=== PATIENT | female | born 1940 | race Caucasian/White ===

== ENCOUNTER → 2016-04-03 | Outpatient (CLI) | payer OTHER, BC ==
[~2016-04-03] MED LIST: AMLO-114 PO; ATEN50TA8 PO; CALC500C70 PO; LEVO25TA5 PO
[2016-04-03 13:28] LABS: BASO % 0.5 %; BASO ABS # 0.04 K/uL (0-0.2); COMPLETE YES; EOS % 3.3 %; HEMATOCRIT 42.4 % (37-47); IG% 0.1 %; LYMPH % 36.5 %; MEAN CELL VOLUME 90.4 fL (80-100); MEAN CORPUSCULAR HEMOGLOBIN 30.1 pg (25-34); MEAN CORPUSCULAR HGB CONC 33.3 g/dl (32-36); MEAN PLATELET VOLUME 11.5 fL (7.4-10.4); MONO % 8.3 %; NEUT % 51.3 %; PLATELET COUNT 242 K/uL (130-400); RED BLOOD COUNT 4.69 M/uL (4.2-5.4); WHITE BLOOD COUNT 7.95 K/uL (4.8-10.8)
[2016-04-03 13:33] LABS: BLOOD UREA NITROGEN 15 mg/dl (7-18); BUN/CREATININE RATIO 21.1 (10-20); CALCIUM 9.4 mg/dl (8.5-10.1); CARBON DIOXIDE 30 mmol/L (21-32); CHLORIDE 104 mmol/L (98-107); CREATININE 0.71 mg/dl (0.60-1.20); GLUCOSE 91 mg/dl (70-99); POTASSIUM 3.8 mmol/L (3.5-5.1); SODIUM 142 mmol/L (136-145)
[2016-04-03 13:44] LABS: CHOLESTEROL 197 mg/dl (0-200); CHOLESTEROL/HDL RATIO 4.2; HDL CHOLESTEROL 47 mg/dl; LDL CHOLESTEROL CALCULATED 127 mg/dl; THYROID STIMULATING HORMONE 0.586 uIu/ml (0.300-4.500); TRIGLYCERIDES 113 mg/dl (0-150); VERY LOW DENSITY LIPOPROT CALC 23 mg/dl
[2016-04-06 08:59] LABS: MICROSOMAL AB >900 IU/ML (<9); THYROGLOBULIN 2.8 NG/ML (2.8-40.9)
== END | disposition home or self-care (01) ==
LOC: C.LABMFLN 10:28
PROVIDERS: ATTEND Family Medicine
DX: I10 Essential (primary) hypertension (principal); E78.00 Pure hypercholesterolemia, unspecified; E05.00 Thyrotoxicosis with diffuse goiter without thyrotoxic crisis or storm; E55.9 Vitamin D deficiency, unspecified; L03.213 Periorbital cellulitis

== ENCOUNTER → 2016-04-23 | Day surgery (SDC) | payer OTHER, BC ==
[2016-04-14 09:35] VITALS: Ht 167.6 cm; Wt 68.2 kg
[~2016-04-23] VITALS: Ht 167.6 cm; Wt 68.2 kg
[~2016-04-23] MED LIST changes: +500ML BSS 0.3ML EPI 1:1000PF IRRIG ONE; +ACETAMINOPHEN 325 MG TAB PO PRN; +AMVISC PLUS 0.8ML SYRINGE INT OCU ONE; +ATROPINE SULFATE 0.1 MG/ML 5ML SYR IV PRN; +BSS FLUSH ONE; +EpHEDrine SULFATE INJ 50 MG/ML AMP IV PRN; +EpINEphrine INJ 1MG/ML AMP 1 MG/ML AMP ONE; +LACTATED RINGER'S 1000ML 500 ML IV SCH; +LIDOCAINE 3.5% OPH GEL PER APPLICATION CHARGE ONE; +LIDOCAINE HCL 1% MPF 2 ML VIAL ONE; +MIDAZOLAM HCL 1 MG/ML 2ML VIAL ONE; +OCUCOAT 1 ML SOLN IO ONE; +PHENYLEPHRINE HCL 10% OP SOLN PER DROP CHARGE OPL SCH; +POVIDONE-IODINE OP SOLN 30 ML BTL ONE; +PROPARACAINE 0.5% OP SOLN PER DROP CHARGE OPL SCH; +TOBRAMYCIN/DEXAMETHASONE OPH OINT PER APPLN CHARGE ONE
--- NOTE | 2016-04-23 09:49 | History & Physical Bridge - [place] ---
H&P Re-Evaluation Bridge Note: I have examined the patient, reviewed the History & Physical and in the interval since the performance of the History & Physical I have noted the following changes of clinical significance: No changes noted
[2016-04-23] MEDS: PHENYLEPHRINE HCL 2.5% OP SOLN PER DROP CHARGE OPL SCH ×2 (10:06→10:16)
[2016-04-23] MEDS: TROPICAMIDE 1% OP SOLN PER DROP CHARGE OPL SCH ×2 (10:07→10:17)
[2016-04-23] MEDS: CYCLOPENTOLATE HCL 1% OP SOLN PER DROP CHARGE OPL SCH ×2 (10:08→10:18)
[2016-04-23] MEDS: KETOROLAC 0.5% OP SOLN PER DROP CHARGE OPL SCH ×2 (10:09→10:19)
[2016-04-23] MEDS: GATIFLOXACIN OP SOLN PER DROP CHARGE OPL SCH ×2 (10:10→10:20)
--- NOTE | 2016-04-23 10:56 | [facility] Operative Report ---
Operative Report 1. PREOPERATIVE DIAGNOSIS: Cataract of the left eye. 2. POSTOPERATIVE DIAGNOSIS: Same. 3. PROCEDURE: Phacoemulsification with intraocular lens implantation of the left eye. SURGEON: Dr. Thiago Sierra. ANESTHESIA: Topical Lidocaine gel, 1% Non- Preserved intracameral Lidocaine, and monitored intravenous sedation. INDICATIONS FOR THE PROCEDURE: The patient is a 75 - year-old female with a history of cataract of the left eye causing significant visual impairment. The details of the proposed procedure were explained to the patient who asked appropriate questions and following discussion of all risks, benefits and alternatives agreed to have the procedure done. 4. OPERATION AND FINDINGS: DESCRIPTION OF PROCEDURE: After informed consent was obtained, the patient was brought to the Operating Room at the [facility]. The patient was placed in a supine position and then the left eye was prepped and draped in the usual sterile fashion for intraocular surgery. A drop of topical Lidocaine gel was placed in the operative eye. A wire lid speculum was then placed in the fornices. A corneal paracentesis was then created temporally. The Non-Preserved Lidocaine was then instilled into the anterior chamber. The anterior chamber was then pressurized with viscoelastic. A 2.0 mm clear corneal incision was then created temporally. A cystotome was inserted into the anterior chamber and used to create a tear in the anterior lens capsule. This capsular tear was then used to create a small flap and the flap was dragged in a counterclockwise direction in order to create a continuous curvilinear capsulorrhexis. Hydrodissection was accomplished with balanced salt solution. Phacoemulsification of the lens nucleus was then performed in a standard [id number] technique. The phaco time was 27 seconds with an average power of 16 %. The remaining cortical material was removed using irrigation aspiration. The capsular bag was then filled with viscoelastic. A Bausch & Lomb MI60L +22.5 diopters lens was then loaded into the injector and injected into the capsular bag. The remaining viscoelastic was removed with the irrigation aspiration handpiece. The wound was hydrated and then checked and found to be watertight. The intraocular pressure was checked and found to be adequate. The wire lid speculum was removed and the patient's face was cleaned and dried. TobraDex ointment was placed in the inferior fornix. The patient was discharged to the Recovery Room having tolerated the procedure well. There were no complications. The patient will be seen tomorrow in the office for follow-up. I attest to the content of the Intraoperative Record and any orders documented therein. Any exceptions are noted below.
--- NOTE | 2016-04-23 10:56 | Discharge Instructions-SurgCtr ---
Discharge Instructions Visit Reason for Visit: Cataract Left Eye Discharge Discharge Diagnosis / Problem: cataract Discharge Goals Goal(s): Improve function Activity Recommendations Activity Limitations: per Instructions/Follow-up section Anesthesia . Post Anesthesia Instructions: If you have had General Anesthesia or IV Sedation: * Do not drive today. * Resume driving when surgeon permits. * Do not make important decisions or sign legal documents today. * Call surgeon for: 1. Temperature elevations greater than 101 degrees F. 2. Uncontrollable pain. 3. Excessive bleeding. 4. Persistent nausea and vomiting. 5. Medication intolerance (nausea, vomiting or rash). * For nausea and vomiting use only clear liquids such as: tea, soda, bouillon until nausea subsides, then gradually increase diet as tolerated. * If you have any concerns or questions, call your surgeon's office. If physician is unavailable and it is an emergency, call 911 or go to the nearest emergency room. . Instructions / Follow-Up Instructions / Follow-Up ACTIVITY RECOMMENDATIONS: * No strenuous lifting, jogging or running for 4 days * No swimming or yard work for 1 week. * Limited bending is permitted, such as putting on shoes. RETURN TO SCHOOL/WORK: No work until seen by physician in office. MEDICATIONS: Resume previous medications unless instructed otherwise by your surgeon. This includes eye drops for glaucoma. Zymaxid/Gatifloxacin (nelson cap) - one drop every 2 hours until bedtime Nevanac/Ilevro/Prolensa/Ketorolac (bucio cap) - one drop every 4 hours until bedtime Prednisolone (white/pink cap, SHAKE WELL) - one drop every 2 hours until bedtime Starting tomorrow - all 3 drops every 4 hours until seen in the office Optive drops - as needed for discomfort SPECIAL CARE INSTRUCTIONS: * Wear eyeshield when sleeping, for four nights. * You may wear your own glasses or sunglasses while awake. * You may read or watch TV * You may shower and wash your face, but be gentle around the eye and pat dry. * Blurry vision and mild irritation are normal. * Call office if pain is more severe or vision becomes dark at . FOLLOW UP VISIT: Follow-up with Dr Sierra tomorrow. Diet Recommendations Home Diet: resume previous diet Procedures Procedures Performed: Left Cataract Phacoemulsification With Intraocular Lens Implant Pending Studies Studies pending at discharge: no Medical Emergencies . Who to Call and When: Medical Emergencies: If at any time you feel your situation is an emergency, please call 911 immediately. . Non-Emergent Contact Non-Emergency issues call your: Web [employer] Operator [employer] . . "Provider Documentation" section prepared by Thiago Sierra.
[2016-04-23 10:58] VITALS: TEMP 36.6
[2016-04-23 11:17] VITALS: BP 118/64; PULSE 50; O2SAT 94
--- NOTE | 2016-04-23 11:17 | Anesthesia Progress Nt - [facility] ---
Anesthesia Post Op Note Date & Time Apr 23, 2016 at 11:17 Vital Signs Pain Intensity: 0 Vital Signs Past 12 Hours Date Time Temp Pulse Resp B/P Pulse Ox O2 Delivery O2 Flow Rate FiO2 04/23/16 10:58 36.6 53 16 112/63 93 Room Air 04/23/16 09:38 36.9 53 16 169/73 92 Room Air Notes Mental Status: alert / awake / arousable, participated in evaluation Pt Amnestic to Procedure: Yes Nausea / Vomiting: adequately controlled Pain: adequately controlled Airway Patency, RR, SpO2: stable & adequate BP & HR: stable & adequate Hydration State: stable & adequate Anesthetic Complications: no major complications apparent
== END | disposition home or self-care (01) ==
LOC: X.SURG 09:01
PROVIDERS: ATTEND Ophthalmology
DX: H26.9 Unspecified cataract (principal); J44.9 Chronic obstructive pulmonary disease, unspecified; I10 Essential (primary) hypertension; Z68.24 Body mass index [BMI] 24.0-24.9, adult; E03.9 Hypothyroidism, unspecified; F17.200 Nicotine dependence, unspecified, uncomplicated

== ENCOUNTER → 2016-06-16 | Day surgery (SDC) | payer OTHER, BC ==
[2016-05-08 12:24] VITALS: Ht 167.6 cm; Wt 68.2 kg
[~2016-06-16] VITALS: Ht 167.6 cm; Wt 68.2 kg
[~2016-06-16] MED LIST changes: -ATROPINE SULFATE 0.1 MG/ML 5ML SYR IV PRN; +CYCLOPENTOLATE HCL 1% OP SOLN PER DROP CHARGE OPR SCH; -EpHEDrine SULFATE INJ 50 MG/ML AMP IV PRN; +GATIFLOXACIN OP SOLN PER DROP CHARGE OPR SCH; +KETOROLAC 0.5% OP SOLN PER DROP CHARGE OPR SCH; -PHENYLEPHRINE HCL 10% OP SOLN PER DROP CHARGE OPL SCH; +PHENYLEPHRINE HCL 10% OP SOLN PER DROP CHARGE OPR SCH; +PHENYLEPHRINE HCL 2.5% OP SOLN PER DROP CHARGE OPR SCH; -PROPARACAINE 0.5% OP SOLN PER DROP CHARGE OPL SCH; +PROPARACAINE 0.5% OP SOLN PER DROP CHARGE OPR SCH; +TROPICAMIDE 1% OP SOLN PER DROP CHARGE OPR SCH
[2016-06-16] MEDS: PHENYLEPHRINE HCL 2.5% OP SOLN PER DROP CHARGE OPR SCH ×2 (08:26→08:31)
[2016-06-16] MEDS: TROPICAMIDE 1% OP SOLN PER DROP CHARGE OPR SCH ×2 (08:27→08:33)
[2016-06-16] MEDS: CYCLOPENTOLATE HCL 1% OP SOLN PER DROP CHARGE OPR SCH ×2 (08:28→08:34)
[2016-06-16] MEDS: KETOROLAC 0.5% OP SOLN PER DROP CHARGE OPR SCH ×2 (08:29→08:35)
[2016-06-16] MEDS: GATIFLOXACIN OP SOLN PER DROP CHARGE OPR SCH ×2 (08:30→08:40)
--- NOTE | 2016-06-16 09:25 | Discharge Instructions-SurgCtr ---
Discharge Instructions Date of Service Jun 16, 2016. Visit Reason for Visit: Cataract Right Eye Discharge Discharge Diagnosis / Problem: cataract Discharge Goals Goal(s): Improve function Activity Recommendations Activity Limitations: per Instructions/Follow-up section Anesthesia . Post Anesthesia Instructions: If you have had General Anesthesia or IV Sedation: * Do not drive today. * Resume driving when surgeon permits. * Do not make important decisions or sign legal documents today. * Call surgeon for: 1. Temperature elevations greater than 101 degrees F. 2. Uncontrollable pain. 3. Excessive bleeding. 4. Persistent nausea and vomiting. 5. Medication intolerance (nausea, vomiting or rash). * For nausea and vomiting use only clear liquids such as: tea, soda, bouillon until nausea subsides, then gradually increase diet as tolerated. * If you have any concerns or questions, call your surgeon's office. If physician is unavailable and it is an emergency, call 911 or go to the nearest emergency room. . Instructions / Follow-Up Instructions / Follow-Up ACTIVITY RECOMMENDATIONS: * No strenuous lifting, jogging or running for 4 days * No swimming or yard work for 1 week. * Limited bending is permitted, such as putting on shoes. RETURN TO SCHOOL/WORK: No work until seen by physician in office. MEDICATIONS: Resume previous medications unless instructed otherwise by your surgeon. This includes eye drops for glaucoma. Zymaxid/Gatifloxacin (nelson cap) - one drop every 2 hours until bedtime Nevanac/Ilevro/Prolensa/Ketorolac (bucio cap) - one drop every 4 hours until bedtime Prednisolone (white/pink cap, SHAKE WELL) - one drop every 2 hours until bedtime Starting tomorrow - all 3 drops every 4 hours until seen in the office Optive drops - as needed for discomfort SPECIAL CARE INSTRUCTIONS: * Wear eyeshield when sleeping, for four nights. * You may wear your own glasses or sunglasses while awake. * You may read or watch TV * You may shower and wash your face, but be gentle around the eye and pat dry. * Blurry vision and mild irritation are normal. * Call office if pain is more severe or vision becomes dark at . FOLLOW UP VISIT: Follow-up with Dr Sierra tomorrow. Diet Recommendations Home Diet: resume previous diet Pending Studies Studies pending at discharge: no Medical Emergencies . Who to Call and When: Medical Emergencies: If at any time you feel your situation is an emergency, please call 911 immediately. . Non-Emergent Contact Non-Emergency issues call your: Director [employer] . . "Provider Documentation" section prepared by Thiago Sierra.
--- NOTE | 2016-06-16 09:25 | [facility] Operative Report ---
Operative Report Date of Service Jun 16, 2016. Operative Report 1. PREOPERATIVE DIAGNOSIS: Cataract of the right eye. 2. POSTOPERATIVE DIAGNOSIS: Same. 3. PROCEDURE: Phacoemulsification with intraocular lens implantation of the right eye. SURGEON: Dr. Thiago Sierra. ANESTHESIA: Topical Lidocaine gel, 1% Non- Preserved intracameral Lidocaine, and monitored intravenous sedation. INDICATIONS FOR THE PROCEDURE: The patient is a 75 - year-old female with a history of cataract of the right eye causing significant visual impairment. The details of the proposed procedure were explained to the patient who asked appropriate questions and following discussion of all risks, benefits and alternatives agreed to have the procedure done. 4. OPERATION AND FINDINGS: DESCRIPTION OF PROCEDURE: After informed consent was obtained, the patient was brought to the Operating Room at the [facility]. The patient was placed in a supine position and then the right eye was prepped and draped in the usual sterile fashion for intraocular surgery. A drop of topical Lidocaine gel was placed in the operative eye. A wire lid speculum was then placed in the fornices. A corneal paracentesis was then created temporally. The Non-Preserved Lidocaine was then instilled into the anterior chamber. The anterior chamber was then pressurized with viscoelastic. A 2.0 mm clear corneal incision was then created temporally. A cystotome was inserted into the anterior chamber and used to create a tear in the anterior lens capsule. This capsular tear was then used to create a small flap and the flap was dragged in a counterclockwise direction in order to create a continuous curvilinear capsulorrhexis. Hydrodissection was accomplished with balanced salt solution. Phacoemulsification of the lens nucleus was then performed in a standard [id number] technique. The phaco time was 26 seconds with an average power of 18 %. The remaining cortical material was removed using irrigation aspiration. The capsular bag was then filled with viscoelastic. A Bausch & Lomb MI60L +21.5 diopters lens was then loaded into the injector and injected into the capsular bag. The remaining viscoelastic was removed with the irrigation aspiration handpiece. The wound was hydrated and then checked and found to be watertight. The intraocular pressure was checked and found to be adequate. The wire lid speculum was removed and the patient's face was cleaned and dried. TobraDex ointment was placed in the inferior fornix. The patient was discharged to the Recovery Room having tolerated the procedure well. There were no complications. The patient will be seen tomorrow in the office for follow-up. I attest to the content of the Intraoperative Record and any orders documented therein. Any exceptions are noted below.
[2016-06-16 09:27] VITALS: TEMP 36.3
--- NOTE | 2016-06-16 09:37 | Anesthesia Progress Nt - [facility] ---
Anesthesia Post Op Note Date & Time Jun 16, 2016 at 09:37 Vital Signs Pain Intensity: 0 Vital Signs Past 12 Hours Date Time Temp Pulse Resp B/P Pulse Ox O2 Delivery O2 Flow Rate FiO2 06/16/16 09:27 36.3 54 18 108/63 93 Room Air 06/16/16 08:30 36.6 58 16 123/63 96 Room Air Notes Mental Status: alert / awake / arousable, participated in evaluation Pt Amnestic to Procedure: No Nausea / Vomiting: adequately controlled Pain: adequately controlled Airway Patency, RR, SpO2: stable & adequate BP & HR: stable & adequate Hydration State: stable & adequate Anesthetic Complications: no major complications apparent Pt doing well. Recall as expected.
[2016-06-16 09:52] VITALS: BP 131/67; PULSE 60; O2SAT 95
== END | disposition home or self-care (01) ==
LOC: X.SURG 08:05
PROVIDERS: ATTEND Ophthalmology
DX: H26.9 Unspecified cataract (principal); H54.7 Unspecified visual loss; E05.90 Thyrotoxicosis, unspecified without thyrotoxic crisis or storm; E78.5 Hyperlipidemia, unspecified; I10 Essential (primary) hypertension

== ENCOUNTER → 2016-11-04 | Outpatient (CLI) | payer OTHER, BC ==
[~2016-11-04] MED LIST changes: -500ML BSS 0.3ML EPI 1:1000PF IRRIG ONE; -ACETAMINOPHEN 325 MG TAB PO PRN; -AMVISC PLUS 0.8ML SYRINGE INT OCU ONE; -BSS FLUSH ONE; -CYCLOPENTOLATE HCL 1% OP SOLN PER DROP CHARGE OPR SCH; -EpINEphrine INJ 1MG/ML AMP 1 MG/ML AMP ONE; -GATIFLOXACIN OP SOLN PER DROP CHARGE OPR SCH; -KETOROLAC 0.5% OP SOLN PER DROP CHARGE OPR SCH; -LACTATED RINGER'S 1000ML 500 ML IV SCH; -LIDOCAINE 3.5% OPH GEL PER APPLICATION CHARGE ONE; -LIDOCAINE HCL 1% MPF 2 ML VIAL ONE; -MIDAZOLAM HCL 1 MG/ML 2ML VIAL ONE; -OCUCOAT 1 ML SOLN IO ONE; -PHENYLEPHRINE HCL 10% OP SOLN PER DROP CHARGE OPR SCH; -PHENYLEPHRINE HCL 2.5% OP SOLN PER DROP CHARGE OPR SCH; -POVIDONE-IODINE OP SOLN 30 ML BTL ONE; -PROPARACAINE 0.5% OP SOLN PER DROP CHARGE OPR SCH; -TOBRAMYCIN/DEXAMETHASONE OPH OINT PER APPLN CHARGE ONE; -TROPICAMIDE 1% OP SOLN PER DROP CHARGE OPR SCH
[2016-11-04 13:41] LABS: ALT/SGPT 17 U/L (12-78); AST/SGOT 14 U/L (15-37); BLOOD UREA NITROGEN 13 mg/dl (7-18); BUN/CREATININE RATIO 18.7 (10-20); CALCIUM 8.9 mg/dl (8.5-10.1); CARBON DIOXIDE 33 mmol/L (21-32); CHLORIDE 102 mmol/L (98-107); CHOLESTEROL 221 mg/dl (0-200); GLUCOSE 102 mg/dl (70-99); SODIUM 139 mmol/L (136-145); TRIGLYCERIDES 118 mg/dl (0-150); VERY LOW DENSITY LIPOPROT CALC 24 mg/dl
[2016-11-04 13:44] LABS: CHOLESTEROL/HDL RATIO 4.3; HDL CHOLESTEROL 51 mg/dl; LDL CHOLESTEROL CALCULATED 146 mg/dl
== END | disposition home or self-care (01) ==
LOC: C.LABMFLN 07:17
PROVIDERS: ATTEND Family Medicine
DX: I10 Essential (primary) hypertension (principal); E78.00 Pure hypercholesterolemia, unspecified; E05.00 Thyrotoxicosis with diffuse goiter without thyrotoxic crisis or storm; E03.9 Hypothyroidism, unspecified; M85.80 Other specified disorders of bone density and structure, unspecified site; E55.9 Vitamin D deficiency, unspecified

== ENCOUNTER → 2016-11-25 | Outpatient (CLI) | payer OTHER, BC ==
[2016-11-25 13:24] LABS: THYROID STIMULATING HORMONE 0.411 uIu/ml (0.300-4.500)
== END | disposition home or self-care (01) ==
LOC: C.LABMFLN 10:03
PROVIDERS: ATTEND Family Medicine
DX: E03.9 Hypothyroidism, unspecified (principal)

== ENCOUNTER → 2017-05-18 | Outpatient (CLI) | payer OTHER, BC ==
[2017-05-18 14:37] LABS: ALT/SGPT 16 U/L (12-78); AST/SGOT 12 U/L (15-37); BLOOD UREA NITROGEN 16 mg/dl (7-18); CARBON DIOXIDE 30 mmol/L (21-32); CHOLESTEROL 199 mg/dl (0-200); CREATININE 0.64 mg/dl (0.60-1.20); GLUCOSE 98 mg/dl (70-99); POTASSIUM 3.8 mmol/L (3.5-5.1); SODIUM 139 mmol/L (136-145)
[2017-05-18 14:47] LABS: LDL CHOLESTEROL CALCULATED 135 mg/dl
== END | disposition home or self-care (01) ==
LOC: C.LABMFLN 07:07
PROVIDERS: ATTEND Family Medicine
DX: I10 Essential (primary) hypertension (principal); E78.00 Pure hypercholesterolemia, unspecified; E03.9 Hypothyroidism, unspecified; M85.80 Other specified disorders of bone density and structure, unspecified site

== ENCOUNTER → 2017-07-07 | Outpatient (CLI) | payer OTHER, BC | END | disposition home or self-care (01) | LOC: C.LABMFLN 11:20 | PROVIDERS: ATTEND Family Medicine | DX: E03.9 Hypothyroidism, unspecified (principal) ==

== ENCOUNTER 2021-08-29 13:05 | Observation (INO) ==
[2021-08-29] MEDS ORDERED: NITROGLYCERIN 2% OINTMENT 30GM TUBE EXT STA (13:54)
[2021-08-29] MEDS ORDERED: LABETALOL HCL IV 5 MG/ML 20ML IV STA (13:54)
--- NOTE | 2021-08-29 14:00 | Emergency Department Note ---
Impression & Plan Acute confusion, Hypertensive urgency, Acute hyponatremia, Stroke-like symptoms ED Provider Note NAME: OTILIO STEWARD AGE: 80 SEX: F : 1940 ARRIVES VIA: Walk-In INFORMANT: [Patient] ED PROVIDER(S): [Douglas Chambers MD] CHIEF COMPLAINT: Stroke symptoms HISTORY OF PRESENT ILLNESS: Patient is a 80-year-old female who presents to the ER with some difficulty with her memory. The patient states that around 3 hours ago, she began to have a headache. After the headache, she felt like she was not thinking right. She had some difficulty remembering things and seemed confused at times. No speech slur, no facial droop. She has not had arm or leg weakness, she feels just weak all over, she feels like she has some shakes to her extremities. There has been some slight pressure to the chest, no shortness of breath. She has had no cough or congestion or respiratory complaints. She was in baseline health yesterday and this morning. She has no history of CVA. She is not on any blood thinning medications. She does have a history of hypertension, she was a bit late on her BP medications this morning but did take them before arrival. REVIEW OF SYSTEMS: See HPI for pertinent positives and negatives. A total of ten systems were reviewed and were otherwise negative. PMHx/PSHx: See Below SOCIAL HISTORY: See Below. PHYSICAL EXAM: GENERAL: Patient is in no acute distress. HEENT: No acute trauma, normocephalic atraumatic, mucous membranes moist, no nasal congestion, no scleral icterus. NECK: No stridor, no adenopathy, no meningismus, trachea is midline. LUNGS: Clear to auscultation bilaterally, no wheeze, no rhonchi, breath sounds equal. HEART: Without murmurs gallops or rubs, regular rate and rhythm. ABDOMEN: Soft, nontender, bowel sounds positive, no peritonitis. EXTREMITIES: No cyanosis or edema, full range of motion of all the joints without pain or difficulty, no signs for acute trauma. NEUROLOGIC: Oriented x 3, no acute motor or sensory deficits, no focal weakness. No speech slur or facial droop, no extremity drift, no cerebellar dysfunction. Some generalized extremity tremor to all 4 extremities noted. No word finding issues noted. SKIN: No rash, no jaundice, no diaphoresis. DIFFERENTIAL DIAGNOSIS: Infection, dehydration, UTI, hypertensive urgency, metabolic abnormality, hypo/hyperglycemia, electrolyte disturbance, anemia, hypoxia, cardiac sources, intracerebral event, toxicologic issues, stroke, TIA, as well as other pathologies. EMERGENCY DEPARTMENT COURSE/PROCEDURES: ECG: Indication was possible stroke. The ECG shows a sinus bradycardia with a rate of 59. There is no ST elevation, there are no PVCs. There is a right bundle branch block. The QTc is 441 Continuous Cardiac Monitoring: An order was placed for continuous cardiac monitoring. The monitor shows a rate of 63 with normal sinus rhythm. Critical Care Note: I have personally spent 45 minutes of critical care time in the direct management of this patient. This includes bedside care, interpretation of diagnostic studies, and testing, discussion with consultants, patient, and family members, and other required patient management activities. This 45 minutes is in excess of all separately billable procedures. MEDICAL DECISION MAKING: There is no leukocytosis or concerning anemia. There is a normal platelet count. No coagulopathy. Sodium was somewhat low at 130, no renal failure. No worrisome liver enzyme elevation. ECG showed a sinus bradycardia, no ischemia. Cardiac enzyme testing x1 is not consistent with acute cardiac injury. TSH was a bit high and the T4 was slightly low. Of note, the patient does have a history of thyroid disease. Urinalysis does not show infection. COVID test returned negative. CT imaging of the brain was unremarkable. CT angio of the head and neck were unremarkable, no clot or stenosis. On my exam, there were no focal neurologic findings. The patient presented quite hypertensive. She did receive nitroglycerin paste, her blood pressure decreased to the 160s systolic. She felt better and her thinking seemed to improve. Because of the hyponatremia, she was given 1 L of IV saline. I had ordered for labetalol however, this medication was not required. The patient is in need of a hospital stay and further work-up for the possibility of small stroke. Certainly, her high blood pressure and her hyponatremia could be responsible for her presentation. Patient is aware of all her findings, I did speak with case management, the on-call hospitalist was consulted. Of note, the patient was not a candidate for tPA, she had presented with symptoms ongoing for about 3 hours, she had no focal neurological findings on my exam. Her symptoms improved after control of her blood pressure. Past Med/Surg History Medical History Benign essential hypertension Dyslipidemia Graves disease Graves' ophthalmopathy Hypercholesterolemia Hypertension Hypertensive urgency Hyponatremia Hypothyroidism Impingement syndrome of both shoulders Osteopenia Venous stasis Vitamin D deficiency Surgical History History of thyroidectomy Family History Father Cerebral aneurysm Brother Thyroid disease Social History Smoking Status: Former smoker Age Started Using Tobacco: 22; packs per day: 3; Years Smoked: 56; Cigarettes Per Day: 1 pack per week.; Hx Alcohol Use: No Hx Substance Use: No Preferred Language: Amharic Visual Impairment: No Limitations Hearing Ability: Normal marital status: Current Living Situation: Spouse current occupational status: retired Feels Safe at Home: Yes Dental Care, Regularly: Yes Physical Activity Frequency: Does not Exercise Allergies Allergies Allergy/AdvReac Type Severity Reaction Status Date / Time adhesive tape Allergy Intermediate SKIN Verified 08/29/21 15:35 IRRITATION clindamycin Allergy Intermediate SICK ALL Verified 08/29/21 15:35 OVER chlorthalidone AdvReac Intermediate DEPLETED Verified 08/29/21 15:35 SALT amlodipine AdvReac Unknown Unknown Verified 08/29/21 15:35 Home Meds Home Medications Medication Instructions Recorded Confirmed calcium carbonate 500 mg-vitamin 1 tab PO BID tab 11/22/18 08/29/21 D3 10 mcg (400 unit) tablet cholecalciferol (vitamin D3) 50 2,000 units PO DAILY #30 cap 11/22/18 08/29/21 mcg (2,000 unit) capsule propylene glycol 0.6 % eye drops 1 drops OP DAILY ml 11/22/18 08/29/21 felodipine 2.5 mg tablet,extended 2.5 mg PO QPM 08/29/21 08/29/21 release 24 hr methimazole 5 mg tablet 2.5 mg PO QDD 08/29/21 08/29/21 Previous Rx's Medication Instructions Recorded atenolol 50 mg tablet 50 mg PO BID #180 tab 05/12/21 losartan 50 mg tablet 50 mg PO DAILY #90 tab 08/14/21 Results & Data (ED) Vital Signs Vital Signs - 24 hr 08/29/21 13:12 08/29/21 13:54 08/29/21 15:34 Temperature 36.5 C Temperature Source Temporal Artery Scan Pulse Rate 63 Pulse Rate [Apical] 63 Respiratory Rate 18 16 Blood Pressure 225/82 H Blood Pressure [Left Arm] 169/66 H Blood Pressure Mean 129 Blood Pressure Mean [Left Arm] 100 Pulse Oximetry 95 96 95 Oxygen Delivery Method Room Air Nasal Cannula Oxygen Flow Rate 2 Sepsis Recent Fever Within 48 Hours No Sepsis New/Unexplained Change in Mental Status No Sepsis Action Taken by Nursing No Action Required Home Medications Current Medication List: was personally reviewed by me Laboratory Data Attestation: I reviewed the patient's lab results. Result diagrams: 08/29/21 13:55 08/29/21 13:55 Lab Results 08/29/21 08/29/21 08/29/21 Range/Units 13:55 13:55 13:55 WBC 8.97 (4.8-10.8) K/uL RBC 4.70 (4.2-5.4) M/uL Hgb 14.2 (12.0-16.0) g/dL Hct 42.1 (37-47) % MCV 89.6 (80-100) fL MCH 30.2 (25-34) pg MCHC 33.7 (32-36) g/dL RDW Std Deviation 43.4 (36.4-46.3) fL RDW Coeff of Marielena 13.1 (11.5-14.5) % Plt Count 290 (130-400) K/uL MPV 11.0 H (7.4-10.4) fL Immature Gran % (Auto) 0.1 % Neut % (Auto) 53.2 % Lymph % (Auto) 34.8 % Ray % (Auto) 7.6 % Eos % (Auto) 4.0 % Baso % (Auto) 0.3 % Neut # (Auto) 4.77 (1.4-6.5) K/uL Lymph # (Auto) 3.12 (1.2-3.4) K/uL Ray # (Auto) 0.68 H (0.11-0.59) K/uL Eos # (Auto) 0.36 (0-0.5) K/uL Baso # (Auto) 0.03 (0-0.2) K/uL Immature Gran # (Auto) 0.01 (0.00-0.02) K/uL PT 10.3 (9.0-12.0) Seconds INR 1.0 (0.9-1.1) APTT 29.6 (21.0-31.0) Seconds PTT Ratio 1.1 Sodium 130 L (136-145) mmol/L Potassium 4.1 (3.5-5.1) mmol/L Chloride 91 L (98-107) mmol/L Carbon Dioxide 32 (21-32) mmol/L Anion Gap 7 (3-11) BUN 13 (6-23) mg/dl Creatinine 0.77 (0.6-1.2) mg/dl Est Cr Clr Drug Dosing 53.3 ml/min Est GFR ( Amer) 85.1 ml/min Est GFR (Non-Af Amer) 73.4 ml/min BUN/Creatinine Ratio 16.9 (10-20) Glucose 99 (70-99(Fasting)) mg/dl Calcium 9.5 (8.5-10.1) mg/dl Magnesium 1.8 (1.7-2.4) mg/dl Total Bilirubin 0.8 (0.2-1.0) mg/dl AST 17 (13-39) U/L ALT 9 (7-52) U/L Alkaline Phosphatase 80 (34-104) U/L Troponin I High Sens 5.9 (0-14) pg/ml Total Protein 7.2 (6.0-8.3) gm/dl Albumin 4.6 (3.4-5.0) gm/dl Globulin 2.6 (2.5-4.0) gm/dl Albumin/Globulin Ratio 1.8 (0.9-2) TSH (0.300-4.500) uIu/ml Free T4 (0.61-1.60) ng/dl Urine Color Urine Appearance (Clear) Urine pH (4.5-7.5) Ur Specific [place] (1.000-1.030) Urine Protein (Negative) Urine Glucose (UA) (Negative) Urine Ketones (Negative) Urine Blood (Negative) Urine Nitrite (Negative) Urine Bilirubin (Negative) Urine Urobilinogen (Negative) Ur Leukocyte Esterase (Negative) SARS-CoV-2, RNA, NAAT (NEGATIVE) 08/29/21 08/29/21 08/29/21 Range/Units 13:55 14:40 15:37 WBC (4.8-10.8) K/uL RBC (4.2-5.4) M/uL Hgb (12.0-16.0) g/dL Hct (37-47) % MCV (80-100) fL MCH (25-34) pg MCHC (32-36) g/dL RDW Std Deviation (36.4-46.3) fL RDW Coeff of Marielena (11.5-14.5) % Plt Count (130-400) K/uL MPV (7.4-10.4) fL Immature Gran % (Auto) % Neut % (Auto) % Lymph % (Auto) % Ray % (Auto) % Eos % (Auto) % Baso % (Auto) % Neut # (Auto) (1.4-6.5) K/uL Lymph # (Auto) (1.2-3.4) K/uL Ray # (Auto) (0.11-0.59) K/uL Eos # (Auto) (0-0.5) K/uL Baso # (Auto) (0-0.2) K/uL Immature Gran # (Auto) (0.00-0.02) K/uL PT (9.0-12.0) Seconds INR (0.9-1.1) APTT (21.0-31.0) Seconds PTT Ratio Sodium (136-145) mmol/L Potassium (3.5-5.1) mmol/L Chloride (98-107) mmol/L Carbon Dioxide (21-32) mmol/L Anion Gap (3-11) BUN (6-23) mg/dl Creatinine (0.6-1.2) mg/dl Est Cr Clr Drug Dosing ml/min Est GFR ( Amer) ml/min Est GFR (Non-Af Amer) ml/min BUN/Creatinine Ratio (10-20) Glucose (70-99(Fasting)) mg/dl Calcium (8.5-10.1) mg/dl Magnesium (1.7-2.4) mg/dl Total Bilirubin (0.2-1.0) mg/dl AST (13-39) U/L ALT (7-52) U/L Alkaline Phosphatase (34-104) U/L Troponin I High Sens (0-14) pg/ml Total Protein (6.0-8.3) gm/dl Albumin (3.4-5.0) gm/dl Globulin (2.5-4.0) gm/dl Albumin/Globulin Ratio (0.9-2) TSH 5.862 H (0.300-4.500) uIu/ml Free T4 0.51 L (0.61-1.60) ng/dl Urine Color Yellow Urine Appearance Clear (Clear) Urine pH 7.5 (4.5-7.5) Ur Specific [place] 1.039 H (1.000-1.030) Urine Protein Negative (Negative) Urine Glucose (UA) Negative (Negative) Urine Ketones Negative (Negative) Urine Blood Negative (Negative) Urine Nitrite Negative (Negative) Urine Bilirubin Negative (Negative) Urine Urobilinogen Negative (Negative) Ur Leukocyte Esterase Negative (Negative) SARS-CoV-2, RNA, NAAT NEGATIVE (NEGATIVE) Administered Medications Discontinued Medications Sodium Chloride (Nss 1000ml) 1,000 mls @ 999 mls/hr IV .Q1H1M ONE Stop: 08/29/21 16:09 Last Admin: 08/29/21 15:30 Dose: 999 mls/hr Documented by: [id number] Ioversol (Optiray 320 125ml) 118 ml IV ONCE ONE Stop: 08/29/21 14:18 Last Admin: 08/29/21 14:18 Dose: 118 ml Documented by: [id number] Labetalol HCl (Labetalol Hcl Iv 5 Mg/Ml 20ml) 10 mg IV NOW STA Stop: 08/29/21 13:55 Last Admin: 08/29/21 14:17 Dose: Not Given Documented by: [id number] Nitroglycerin (Nitroglycerin 2% Ointment 30gm Tube) 1 inch EXT NOW STA Stop: 08/29/21 13:55 Last Admin: 08/29/21 14:12 Dose: 1 inch Documented by: [id number] Imaging Data Radiologist's Impression: Head CT 08/29/21 13:[address] OF THE BRAIN; CT ANGIOGRAM OF THE BRAIN; CT ANGIOGRAM OF THE NECK CLINICAL HISTORY: Strokelike symptoms. COMPARISON STUDY: No priors. TECHNIQUE: Unenhanced axial CT scan of the brain is performed. Subsequently, fol lowing the IV administration of 118 of Optiray 320, CT angiogram of the head and neck was performed from the aortic arch to the vertex. Images are reviewed in the axial, sagittal, and coronal planes. 3-D MIPS images are created and assessed. IV contrast was administered without complication. All measurements were calculated based on NASCET criteria. A dose lowering technique was utilized adhering to the principles of ALARA. CT DOSE: 1177.79 mGy.cm FINDINGS: Brain parenchyma: There is age-related involutional change noting minimal microangiopathic disease. There is no hemorrhage, mass effect, or evidence of acute territorial ischemia by CT criteria. There is no evidence of enhancing mass lesion on the angiogram phase images. The ventricles, sulci, and cisterns are prominent secondary to involutional change. Omer-white matter differentiation is preserved. No extra-axial fluid collection is seen. Thoracic aorta: There is atherosclerotic calcification of the thoracic aorta. Visualized portions of the thoracic aorta are normal in caliber. The aortic arch demonstrates standard 3-vessel anatomy. Right carotid arterial system: The right common carotid artery is widely patent. Atherosclerotic plaque causes less than 50% narrowing of the proximal right internal carotid artery. The right internal and external carotid arteries are otherwise widely patent. Left carotid arterial system: The left common carotid artery is widely patent, as are the left internal and external carotid arteries. Calcified plaque is seen the carotid bulb. Vertebral arteries: The vertebral arteries are widely patent bilaterally noting mild left-sided dominance patchy Subclavian arteries: Patent bilaterally. Intracranial vasculature: There is atherosclerotic calcification of the cavernous carotid and vertebral arteries. The internal carotid arteries are patent at the skull base, as are the anterior and middle cerebral arteries bilaterally. The vertebrobasilar system and posterior cerebral arteries are widely patent. There is mild dominance of the left vertebral artery. There is no aneurysm, high-grade stenosis, or focal vessel cut off seen throughout the intracranial circulation. Jugular veins: Patent bilaterally. Dural sinuses: Patent. Lung apices: Emphysematous change is noted. Upper lobe lung parenchyma is otherwise clear as imaged. Soft tissues: The visualized pharyngeal soft tissues are normal in appearance noting angiographic phase technique. The oropharyngeal airway appears widely patent. The right lobe of the thyroid gland is surgically absent. The left lobe is enlarged and heterogeneous. The salivary glands are normal in appearance. No cervical lymphadenopathy is seen. Skeletal structures: The skeletal structures are osteopenic. The calvarium appears intact. The cervical spine is maintained noting multilevel spondylosis. No lytic or blastic lesion is seen. Orbits: The bony orbits are intact. Orbital contents are normal as visualized noting bilateral ocular lens implants. Sinuses and mastoids: The paranasal sinuses are clear. The mastoid air cells are well pneumatized. IMPRESSION: 1 There is no hemorrhage, mass effect, or evidence of acute territorial ischemia by CT criteria. 2. Unremarkable CT angiogram of the brain. 3. Unremarkable CT angiogram of the neck. 4. Emphysema. ACT 112: Negative or not required by law. Electronically signed by: Douglas Richardson M.D. 08/29/2021 2:36 PM Head CTA 08/29/21 13:[address] OF THE BRAIN; CT ANGIOGRAM OF THE BRAIN; CT ANGIOGRAM OF THE NECK CLINICAL HISTORY: Strokelike symptoms. COMPARISON STUDY: No priors. TECHNIQUE: Unenhanced axial CT scan of the brain is performed. Subsequently, following the IV administration of 118 of Optiray 320, CT angiogram of the head and neck was performed from the aortic arch to the vertex. Images are reviewed in the axial, sagittal, and coronal planes. 3-D MIPS images are created and assessed. IV contrast was administered without complication. All measurements were calculated based on NASCET criteria. A dose lowering technique was utilized adhering to the principles of ALARA. CT DOSE: 1177.79 mGy.cm FINDINGS: Brain parenchyma: There is age-related involutional change noting minimal microangiopathic disease. There is no hemorrhage, mass effect, or evidence of acute territorial ischemia by CT criteria. There is no evidence of enhancing mass lesion on the angiogram phase images. The ventricles, sulci, and cisterns are prominent secondary to involutional change. Omer-white matter differentiat ion is preserved. No extra-axial fluid collection is seen. Thoracic aorta: There is atherosclerotic calcification of the thoracic aorta. Visualized portions of the thoracic aorta are normal in caliber. The aortic arch demonstrates standard 3-vessel anatomy. Right carotid arterial system: The right common carotid artery is widely patent. Atherosclerotic plaque causes less than 50% narrowing of the proximal right internal carotid artery. The right internal and external carotid arteries are otherwise widely patent. Left carotid arterial system: The left common carotid artery is widely patent, as are the left internal and external carotid arteries. Calcified plaque is seen the carotid bulb. Vertebral arteries: The vertebral arteries are widely patent bilaterally noting mild left-sided dominance patchy Subclavian arteries: Patent bilaterally. Intracranial vasculature: There is atherosclerotic calcification of the cavernous carotid and vertebral arteries. The internal carotid arteries are patent at the skull base, as are the anterior and middle cerebral arteries bilaterally. The vertebrobasilar system and posterior cerebral arteries are widely patent. There is mild dominance of the left vertebral artery. There is no aneurysm, high-grade stenosis, or focal vessel cut off seen throughout the intracranial circulation. Jugular veins: Patent bilaterally. Dural sinuses: Patent. Lung apices: Emphysematous change is noted. Upper lobe lung parenchyma is oth erwise clear as imaged. Soft tissues: The visualized pharyngeal soft tissues are normal in appearance noting angiographic phase technique. The oropharyngeal airway appears widely patent. The right lobe of the thyroid gland is surgically absent. The left lobe is enlarged and heterogeneous. The salivary glands are normal in appearance. No cervical lymphadenopathy is seen. Skeletal structures: The skeletal structures are osteopenic. The calvarium appears intact. The cervical spine is maintained noting multilevel spondylosis. No lytic or blastic lesion is seen. Orbits: The bony orbits are intact. Orbital contents are normal as visualized noting bilateral ocular lens implants. Sinuses and mastoids: The paranasal sinuses are clear. The mastoid air cells are well pneumatized. IMPRESSION: 1 There is no hemorrhage, mass effect, or evidence of acute territorial ischemia by CT criteria. 2. Unremarkable CT angiogram of the brain. 3. Unremarkable CT angiogram of the neck. 4. Emphysema. ACT 112: Negative or not required by law. Electronically signed by: Douglas Richardson M.D. 08/29/2021 2:36 PM Neck CTA 08/29/21 13:[address] OF THE BRAIN; CT ANGIOGRAM OF THE BRAIN; CT ANGIOGRAM OF THE NECK CLINICAL HISTORY: Strokelike symptoms. COMPARISON STUDY: No priors. TECHNIQUE: Unenhanced axial CT scan of the brain is performed. Subsequently, following the IV administration of 118 of Optiray 320, CT angiogram of the head and neck was performed from the aortic arch to the vertex. Images are reviewed in the axial, sagittal, and coronal planes. 3-D MIPS images are created and assessed. IV contrast was administered without complication. All measurements were calculated based on NASCET criteria. A dose lowering technique was utilized adhering to the principles of ALARA. CT DOSE: 1177.79 mGy.cm FINDINGS: Brain parenchyma: There is age-related involutional change noting minimal microangiopathic disease. There is no hemorrhage, mass effect, or evidence of acute territorial ischemia by CT criteria. There is no evidence of enhancing mass lesion on the angiogram phase images. The ventricles, sulci, and cisterns are prominent secondary to involutional change. Omer-white matter differentiation is preserved. No extra-axial fluid collection is seen. Thoracic aorta: There is atherosclerotic calcification of the thoracic aorta. Visualized portions of the thoracic aorta are normal in caliber. The aortic arch demonstrates standard 3-vessel anatomy. Right carotid arterial system: The right common carotid artery is widely patent. Atherosclerotic plaque causes less than 50% narrowing of the proximal right internal carotid artery. The right internal and external carotid arteries are otherwise widely patent. Left carotid arterial system: The left common carotid artery is widely patent, as are the left internal and external carotid arteries. Calcified plaque is seen the carotid bulb. Vertebral arteries: The vertebral arteries are widely patent bilaterally noting mild left-sided dominance patchy Subclavian arteries: Patent bilaterally. Intracranial vasculature: There is atherosclerotic calcification of the cavernous carotid and vertebral arteries. The internal carotid arteries are patent at the skull base, as are the anterior and middle cerebral arteries bilaterally. The vertebrobasilar system and posterior cerebral arteries are widely patent. There is mild dominance of the left vertebral artery. There is no aneurysm, high-grade stenosis, or focal vessel cut off seen throughout the intracranial circulation. Jugular veins: Patent bilaterally. Dural sinuses: Patent. Lung apices: Emphysematous change is noted. Upper lobe lung parenchyma is otherwise clear as imaged. Soft tissues: The visualized pharyngeal soft tissues are normal in appearance noting angiographic phase technique. The oropharyngeal airway appears widely patent. The right lobe of the thyroid gland is surgically absent. The left lobe is enlarged and heterogeneous. The salivary glands are normal in appearance. No cervical lymphadenopathy is seen. Skeletal structures: The skeletal structures are osteopenic. The calvarium appears intact. The cervical spine is maintained noting multilevel spondylosis. No lytic or blastic lesion is seen. Orbits: The bony orbits are intact. Orbital contents are normal as visualized noting bilateral ocular lens implants. Sinuses and mastoids: The paranasal sinuses are clear. The mastoid air cells are well pneumatized. IMPRESSION: 1 There is no hemorrhage, mass effect, or evidence of acute territorial ischemia by CT criteria. 2. Unremarkable CT angiogram of the brain. 3. Unremarkable CT angiogram of the neck. 4. Emphysema. ACT 112: Negative or not required by law. Electronically signed by: Douglas Richardson M.D. 08/29/2021 2:36 PM Discharge Plan Visit Data Chief Complaint: Stroke/CVA Symptoms Stated Complaint: CONFUSION, WEAKNESS IN BOTH LEG, BALANCE OFF, ED Provider: Douglas Chambers Discharge Problem: Acute confusion, Hypertensive urgency, Acute hyponatremia, Stroke-like symptoms Patient Disposition: Admitted As Inpatient Condition: Fair Forms Stand Alone Forms: My [employer] Prescriptions Prescriptions: No Action atenolol 50 mg tablet 50 mg PO BID Qty: 180 RF: 3 calcium carbonate-vitamin D3 500 mg(1,250mg) -400 unit tablet 1 tab PO BID RF: 0 propylene glycol 0.6 % drops 1 drops OP DAILY RF: 0 cholecalciferol (vitamin D3) 2,000 unit capsule 2,000 units PO DAILY Qty: 30 RF: 0 losartan 50 mg tablet 50 mg PO DAILY Qty: 90 RF: 3 felodipine 2.5 mg tablet extended release 24 hr 2.5 mg PO QPM RF: 0 methimazole 5 mg tablet 2.5 mg PO QDD RF: 0 Referrals Referrals: Douglas Vaz MD [Primary Care Provider] -
[2021-08-29] MEDS ORDERED: OPTIRAY 320 125ml IV ONE (14:17)
[2021-08-29 14:27] LABS: Basophils # (auto) 0.03 K/uL (0-0.2); Basophils % (auto) 0.3 %; Eosinophils # (auto) 0.36 K/uL (0-0.5); Hematocrit (blood only) 42.1 % (37-47); Hemoglobin 14.2 g/dL (12.0-16.0); Immature Granulocytes # (auto) 0.01 K/uL (0.00-0.02); Immature Granulocytes % (auto) 0.1 %; Lymphocytes # (auto) 3.12 K/uL (1.2-3.4); Lymphocytes % (auto) 34.8 %; Mean Corpuscular Hemoglobin 30.2 pg (25-34); Mean Corpuscular Hgb Conc 33.7 g/dL (32-36); Mean Corpuscular Volume 89.6 fL (80-100); Monocytes # (auto) 0.68 K/uL (0.11-0.59); Monocytes % (auto) 7.6 %; Neutrophils # (auto) 4.77 K/uL (1.4-6.5); Neutrophils % (auto) 53.2 %; Platelet Count 290 K/uL (130-400); RDW Coefficient of Variation 13.1 % (11.5-14.5); RDW Standard Deviation 43.4 fL (36.4-46.3); White Blood Count 8.97 K/uL (4.8-10.8)
[2021-08-29 14:33] LABS: Partial Thromboplastin Ratio 1.1; Partial Thromboplastin Time 29.6 Seconds (21.0-31.0); Prothrombin Time 10.3 Seconds (9.0-12.0)
--- NOTE | 2021-08-29 14:38 | CT Scan Report ---
UNENHANCED CT OF THE BRAIN; CT ANGIOGRAM OF THE BRAIN; CT ANGIOGRAM OF THE NECK CLINICAL HISTORY: Strokelike symptoms. COMPARISON STUDY: No priors. TECHNIQUE: Unenhanced axial CT scan of the brain is performed. Subsequently, following the IV adminis tration of 118 of Optiray 320, CT angiogram of the head and neck was performed from the aortic arch t o the vertex. Images are reviewed in the axial, sagittal, and coronal planes. 3-D MIPS images are cre ated and assessed. IV contrast was administered without complication. All measurements were calculate d based on NASCET criteria. A dose lowering technique was utilized adhering to the principles of ALA RA. CT DOSE: 1177.79 mGy.cm FINDINGS: Brain parenchyma: There is age-related involutional change noting minimal microangiopathic disease. T here is no hemorrhage, mass effect, or evidence of acute territorial ischemia by CT criteria. There i s no evidence of enhancing mass lesion on the angiogram phase images. The ventricles, sulci, and cist erns are prominent secondary to involutional change. Omer-white matter differentiation is preserved. No extra-axial fluid collection is seen. Thoracic aorta: There is atherosclerotic calcification of the thoracic aorta. Visualized portions of the thoracic aorta are normal in caliber. The aortic arch demonstrates standard 3-vessel anatomy. Right carotid arterial system: The right common carotid artery is widely patent. Atherosclerotic plaq ue causes less than 50% narrowing of the proximal right internal carotid artery. The right internal a nd external carotid arteries are otherwise widely patent. Left carotid arterial system: The left common carotid artery is widely patent, as are the left automotive internet sales manager al and external carotid arteries. Calcified plaque is seen the carotid bulb. Vertebral arteries: The vertebral arteries are widely patent bilaterally noting mild left-sided domin ance patchy Subclavian arteries: Patent bilaterally. Intracranial vasculature: There is atherosclerotic calcification of the cavernous carotid and vertebr al arteries. The internal carotid arteries are patent at the skull base, as are the anterior and midd le cerebral arteries bilaterally. The vertebrobasilar system and posterior cerebral arteries are wide ly patent. There is mild dominance of the left vertebral artery. There is no aneurysm, high-grade virgilio nosis, or focal vessel cut off seen throughout the intracranial circulation. Jugular veins: Patent bilaterally. Dural sinuses: Patent. Lung apices: Emphysematous change is noted. Upper lobe lung parenchyma is otherwise clear as imaged. Soft tissues: The visualized pharyngeal soft tissues are normal in appearance noting angiographic pha se technique. The oropharyngeal airway appears widely patent. The right lobe of the thyroid gland is surgically absent. The left lobe is enlarged and heterogeneous. The salivary glands are normal in deangelo earance. No cervical lymphadenopathy is seen. Skeletal structures: The skeletal structures are osteopenic. The calvarium appears intact. The cervic al spine is maintained noting multilevel spondylosis. No lytic or blastic lesion is seen. Orbits: The bony orbits are intact. Orbital contents are normal as visualized noting bilateral ocular lens implants. Sinuses and mastoids: The paranasal sinuses are clear. The mastoid air cells are well pneumatized. IMPRESSION: 1 There is no hemorrhage, mass effect, or evidence of acute territorial ischemia by CT criteria. 2. Unremarkable CT angiogram of the brain. 3. Unremarkable CT angiogram of the neck. 4. Emphysema. ACT 112: Negative or not required by law. Electronically signed by: Douglas Richardson M.D. 08/29/2021 2:36 PM
[2021-08-29 14:44] LABS: Troponin I High Sensitivity 5.9 pg/ml (0-14)
--- NOTE | 2021-08-29 14:44 | Electrocardiogram Report ---
Test Reason : Blood Pressure : / mmHG Vent. Rate : 059 BPM Atrial Rate : 059 BPM P-R Int : 202 ms QRS Dur : 126 ms QT Int : 446 ms P-R-T Axes : 079 078 059 degrees QTc Int : 441 ms Poor data quality, interpretation may be adversely affected Sinus bradycardia Right bundle branch block Abnormal ECG When compared with ECG of 04-JAN-2019 15:59, Right bundle branch block has replaced Non-specific intra-ventricular conduction block Confirmed by Gera Hernandez ([id number]) on 08/29/2021 2:43:57 PM Referred By: REFERRED SELF Confirmed By:Zak Hernandez
[2021-08-29 14:53] LABS: Albumin Globulin Ratio 1.8 (0.9-2); Albumin Level 4.6 gm/dl (3.4-5.0); BUN Creatinine Ratio 16.9 (10-20); Bilirubin,Total 0.8 mg/dl (0.2-1.0); Calcium 9.5 mg/dl (8.5-10.1); Creatinine Clr Calc Pharmacy 53.3 ml/min; Est GFR (African American) 85.1 ml/min; Est GFR (Non-African American) 73.4 ml/min; Globulin 2.6 gm/dl (2.5-4.0); Magnesium 1.8 mg/dl (1.7-2.4); Potassium 4.1 mmol/L (3.5-5.1); Thyroid Stimulating Hormone 5.862 uIu/ml (0.300-4.500); Total Protein 7.2 gm/dl (6.0-8.3)
[2021-08-29] MEDS ORDERED: SODIUM CHLORIDE 0.9% 1000ML 1,000 ML IV ONE (15:09)
[2021-08-29 15:25] LABS: T4 Free Thyroxine 0.51 ng/dl (0.61-1.60)
[2021-08-29 16:12] LABS: Appearance Urine Clear (Clear); Bilirubin Urine Negative (Negative); Blood Urine Negative (Negative); Color Urine Yellow; Glucose Urine UA Negative (Negative); Ketones Urine Negative (Negative); Leukocyte Esterase Urine Negative (Negative); Nitrite Urine Negative (Negative); Protein Urine Negative (Negative); Specific Gravity Urine 1.039 (1.000-1.030); Urobilinogen Urine Negative (Negative); pH Urine 7.5 (4.5-7.5)
--- NOTE | 2021-08-29 16:55 | History & Physical Report ---
Date of Service August 29, 2021 Assessment & Plan (1) Hypertensive emergency: Plan: Hypertensive emergency with SBP >220 with end organ brain dysfunction- headache, vision changes, confusion - Resolved symptoms with BP lowering - BP on assessment 169/66- over 2 hours - Likely result of her home medications becoming effective as she took them just before 11 - discontinue nitro-paste - PRN Hydralazine for severe BP elevation - No remaining neurological deficits and no memory deficits- CTA of head and neck without disease - Will hold on MRI as likely related to her HTN episode - May have anxiety component - ECHO in morning - RBB noted back to 2019 - stress ECHO 2019 with LV function and elevated RVSP - Continue Felodipine 2.5mg po daily - have room to adjust - Continue Losartan 50mg PO daily- have room to adjust - Continue Atenolol 50mg PO BID - Add ASA 81 mg daily - as she declines statin therapy secondary to friend's who have had side effects (2) Hyponatremia: Plan: Mild at 130 - With hypochloridemia and elevated Spec gravity - likely hypovolemic- follow in AM - serum and urine osmo pending with urine na- however fluids already administered in the EMD - This is new - CXR for evaluation of lung stratton with her smoking history (3) Smoker: Plan: Current smoker 5-8 cigarrets per day - has not had any PFTs no recent CXR - CXR as above - SPO2 tolerate 88-92% (4) Osteopenia: Plan: On cholecalciferol/Vitamin D (5) Dyslipidemia: Plan: Declines statin (6) Graves disease: Plan: History of thyroidectomy and remained hyperthhyroid following - she is on low dose methimazole - she feels that she remains jittery and jumpy at home - as above possible anxiety component History of Present Illness Primary Care Provider: Douglas Vaz MD 80 YOF with medical history of: current smoker, HTN (uncontrolled), Grave's disease, Thyroidectomy-remained hyperthyroid (on methimazole), HLD (not on medication-patient choice), osteopenia. Patient comes to the EMD today brought in by her for, headache behind her eyes and temporal, blurry vision, and confusion with alteration in short term memory. Patient states that symptoms started this morning around 1000 AM, she was up doing things around the house and forgot to take her blood pressure medications, after she took them she got onset of headache and shaking. Her came home around 1200 and noted that she was more confused and stated that she just did not feel well. He said she was forgetting where she put stuff at and forgetting where they were going. She started to feel better when getting to the EMD. In the EMD she had stroke workup with CTA of the head and neck completed as well as CT scan of the head. She was hypertensive with 225/82. She had nitropaste placed and did not require IV intervention. She states that her symptoms are resolved except for shakiness. The headache was behind her eyes rated 6-7/10 and pain in her temples. When this was resolving she did have some "fuzzy" vision but denies any unilateral or monoccular visual changes, or visual field cuts. No slurred speach or difficulty swallowing and no difficulty walking or moving. She had routine labs done that were noted to have NA of 130 and CL of 91, TSH was 5.8 and free T4 of 0.51, UA was negative except for spec grav of 1.039. She received a liter of 0.9% saline in the EMD. Her blood pressure on assessment is 169/66. Overall the patient has had poor control of her blood pressure and she notes that it is always high and she reports that she has been > 230 before. She has had her medications adjusted in July with the addition of Feldopine. She has no neurological deficits on exam. She is back to her normal mentation and also feels that she is normal. Will admit to medical telemetry to follow overnight, PRN IV BP medications for severe HTN. ECHO in morning in the setting of long standing HTN. COVID test on admission is: NEGATIVE Allergies Allergy/AdvReac Type Severity Reaction Status Date / Time adhesive tape Allergy Intermediate SKIN Verified 08/29/21 15:35 IRRITATION clindamycin Allergy Intermediate SICK ALL Verified 08/29/21 15:35 OVER chlorthalidone AdvReac Intermediate DEPLETED Verified 08/29/21 15:35 SALT amlodipine AdvReac Unknown Unknown Verified 08/29/21 15:35 Home Medications Medication Instructions Recorded Confirmed Type calcium carbonate 500 mg-vitamin 1 tab PO BID tab 11/22/18 08/29/21 History D3 10 mcg (400 unit) tablet cholecalciferol (vitamin D3) 50 2,000 units PO DAILY #30 cap 11/22/18 08/29/21 History mcg (2,000 unit) capsule propylene glycol 0.6 % eye drops 1 drops OP DAILY ml 11/22/18 08/29/21 History atenolol 50 mg tablet 50 mg PO BID #180 tab 05/12/21 08/29/21 Rx losartan 50 mg tablet 50 mg PO DAILY #90 tab 08/14/21 08/29/21 Rx felodipine 2.5 mg tablet,extended 2.5 mg PO QPM 08/29/21 08/29/21 History release 24 hr methimazole 5 mg tablet 2.5 mg PO QDD 08/29/21 08/29/21 History Past Med/Surg History Medical History Benign essential hypertension Dyslipidemia Graves disease Graves' ophthalmopathy Hypercholesterolemia Hypertension Hypertensive urgency Hyponatremia Hypothyroidism Impingement syndrome of both shoulders Osteopenia Venous stasis Vitamin D deficiency Surgical History History of thyroidectomy Family History Father Cerebral aneurysm Brother Thyroid disease Social History (Updated 08/29/21 @ 17:01 by GAVIOTA Merino) Smoking Status: Current every day smoker Tobacco Type: Cigarettes Age Started Using Tobacco: 22; packs per day: 0.25; Years Smoked: 56; Cigarettes Per Day: 1 pack per week.; Second Hand Exposure: No; Do You Dip or Chew Tobacco: No; Hx Alcohol Use: No Hx Substance Use: No Preferred Language: Hebrew Visual Impairment: No Limitations Hearing Ability: Normal marital status: Current Living Situation: Spouse current occupational status: retired Feels Safe at Home: Yes Dental Care, Regularly: Yes Physical Activity Frequency: Does not Exercise Review of Systems Review of Systems: REVIEW OF SYSTEMS: Constitutional: No fever, sweats or chills Eyes: (+) eye pain, No diplopia, no worsening or blurred vision ENT: (+) headache, normal hearing, no trouble swallowing Respiratory: (+) smoker, No cough, sputum, dyspnea at rest or on exertion Cardiovascular: (+) uncontrlled BP, No chest pain, tightness or palpitations Abdomen: No pain, nausea, vomiting, diarrhea or constipation Musculoskeletal: (+) spontaneous twtiches to legs, No joint pain, calf pain, swelling Neurologic: No weakness, numbness/tingling, or balance problems Psychiatric: No anxiety or depression Skin: No rash or itch Physical Exam Physical Exam: PHYSICAL EXAM: General: awake, alert, no apparent distress Head: Normocephalic, atraumatic ENT: PERRLA, pain behind eyes is gone, headache is resolved, EOMI, visual stratton intact, no pharyngeal exudate, mucous membranes dry Neuro: AAO x 3, speech clear and appropriate, strength intact bilaterally 5/5, sensation intact and equal all extremities and dermatomes, no pronator drift Chest: equal rise and fall of the chest, no accessory muscle use, no heaves or thrills, inspiratory wheeze, on 2LNC Cardiac: Regular rate and rhythm, telemetry reviewed, skin warm dry, cap refill <3 seconds, peripheral pulses +2 no JVD, no murmur, no edema GI: NABS x 4 quadrants, soft, nontender to palpation, no rebound, guarding or tenderness : Spontaneously voiding, no pain, no CVA tenderness, Extremities: Normal inspection, no peripheral edema or erythema, calfs nontender to palpation Psych: Normal mood and affect Skin: no rash or erythema Results & Data Results & Data ([facility]) Vital Signs (Past 12 Hours) Vital Signs Temp Pulse Pulse Resp BP BP Pulse Ox 08/29/21 15:34 63 16 169/66 H 95 08/29/21 13:54 96 08/29/21 13:12 36.5 C 63 18 225/82 H 95 Laboratory Results Abnormal lab results 08/29/21 08/29/21 08/29/21 Range/Units 13:55 13:55 13:55 MPV 11.0 H (7.4-10.4) fL [place] # (Auto) 0.68 H (0.11-0.59) K/uL Sodium 130 L (136-145) mmol/L Chloride 91 L (98-107) mmol/L TSH 5.862 H (0.300-4.500) uIu/ml Free T4 0.51 L (0.61-1.60) ng/dl Ur Specific [place] (1.000-1.030) 08/29/21 Range/Units 15:37 MPV (7.4-10.4) fL [place] # (Auto) (0.11-0.59) K/uL Sodium (136-145) mmol/L Chloride (98-107) mmol/L TSH (0.300-4.500) uIu/ml Free T4 (0.61-1.60) ng/dl Ur Specific [place] 1.039 H (1.000-1.030) Diagnostic Findings Discontinued Medications Sodium Chloride (Nss 1000ml) 1,000 mls @ 999 mls/hr IV .Q1H1M ONE Stop: 08/29/21 16:09 Last Admin: 08/29/21 15:30 Dose: 999 mls/hr Documented by: [id number] Ioversol (Optiray 320 125ml) 118 ml IV ONCE ONE Stop: 08/29/21 14:18 Last Admin: 08/29/21 14:18 Dose: 118 ml Documented by: [id number] Labetalol HCl (Labetalol Hcl Iv 5 Mg/Ml 20ml) 10 mg IV NOW STA Stop: 08/29/21 13:55 Last Admin: 08/29/21 14:17 Dose: Not Given Documented by: [id number] Nitroglycerin (Nitroglycerin 2% Ointment 30gm Tube) 1 inch EXT NOW STA Stop: 08/29/21 13:55 Last Admin: 08/29/21 14:12 Dose: 1 inch Documented by: [id number] Medications Administered Home Medications calcium carbonate 500 mg-vitamin D3 10 mcg (400 unit) tablet 1 tab PO BID tab 11/22/18 [History Confirmed 08/29/21] cholecalciferol (vitamin D3) 50 mcg (2,000 unit) capsule 2,000 units PO DAILY #30 cap 11/22/18 [History Confirmed 08/29/21] propylene glycol 0.6 % eye drops 1 drops OP DAILY ml 11/22/18 [History Confirmed 08/29/21] atenolol 50 mg tablet 50 mg PO BID #180 tab 05/12/21 [Rx Confirmed 08/29/21] losartan 50 mg tablet 50 mg PO DAILY #90 tab 08/14/21 [Rx Confirmed 08/29/21] felodipine 2.5 mg tablet,extended release 24 hr 2.5 mg PO QPM 08/29/21 [History Confirmed 08/29/21] methimazole 5 mg tablet 2.5 mg PO QDD 08/29/21 [History Confirmed 08/29/21] Discontinued Medications Sodium Chloride (Nss 1000ml) 1,000 mls @ 999 mls/hr IV .Q1H1M ONE Stop: 08/29/21 16:09 Last Admin: 08/29/21 15:30 Dose: 999 mls/hr Documented by: [id number] Ioversol (Optiray 320 125ml) 118 ml IV ONCE ONE Stop: 08/29/21 14:18 Last Admin: 08/29/21 14:18 Dose: 118 ml Documented by: [id number] Labetalol HCl (Labetalol Hcl Iv 5 Mg/Ml 20ml) 10 mg IV NOW STA Stop: 08/29/21 13:55 Last Admin: 08/29/21 14:17 Dose: Not Given Documented by: [id number] Nitroglycerin (Nitroglycerin 2% Ointment 30gm Tube) 1 inch EXT NOW STA Stop: 08/29/21 13:55 Last Admin: 08/29/21 14:12 Dose: 1 inch Documented by: [id number] ECG Additional Comments: Sinus bradycardia Right bundle branch block Abnormal ECG When compared with ECG of 04-JAN-2019 15:59, Right bundle branch block has replaced Non-specific intra- ventricular conduction block Confirmed by Gera Hernandez ([id number]) on 08/29/2021 2:43:57 PM Code Status & VTE Plan Code Status CODE: FULL VTE: SCDS, Lovenox 40mg subq daily VTE Prophylaxis Plan VTE Prophylaxis will be ordered: Yes Supervising Physician Co-Signing Physician Notes I supervised GAVIOTA Dillon on this admission. I interviewed and examined the patient independently of him. The plan is as written in his note except for any following changes/exceptions: None 80yo F w/ hx of significant HTN who presents stroke-like symptoms and HTN, thought to be hypertensive urgency. Per the patient, she has been working with her PCP to manage her BP. She has been on losartan, atenolol, and was recently added on felodipine ER. She presents with confusion, flurry vision, and headache after forgetting to take her BP meds this morning. She took them late, but her came home and found her confused, and she was brought to the ER. Nitropaste was put on, and her BP is coming down and symptoms have resolved. Will restart her BP meds and add hydralazine PRN for extremely high BP. If her BP remains stable, and her symptoms remain resolved, she can likely go home tomorrow. Re: her Grave's, the thyroid must not have been completely ablated, as she has had detectable thyroid despite ablation. She is on a low-dose of methimazole. TFTs today were 5.8 & 0.5 which are improved from priors. PG Care Time/CCT Total # of Minutes Spent Total Time Spent with Patient: Total time spent is greater than 50% in coordination of care (as documented) at patient's floor/unit and/or counseling patient: Coding Level of Care Code 74600 Initial Inpt Care Lvl 3 Diagnoses Hypertensive emergency I16.1 Hyponatremia E87.1 Osteopenia M85.80 Dyslipidemia E78.5 Graves disease E05.00 Smoker F17.200
--- NOTE | 2021-08-29 17:30 | XRay Report ---
XR chest 1V portable CLINICAL HISTORY: Difficulty breathing. evaluate lung stratton and CV structures. COMPARISON STUDY: 01/04/2019 TECHNIQUE: 1 view of the chest FINDINGS: Single frontal view of the chest demonstrates the cardiomediastinal silhouette to be within normal li mits. There is hyperinflation of the lungs with attenuation of the pulmonary vasculature peripherally characteristic of underlying chronic obstructive pulmonary disease. The lungs are clear of alveolar opacities. There is no evidence for pleural effusion. There is no evidence for vascular congestion. T here is no acute osseous pathology. IMPRESSION: 1. No acute cardiopulmonary disease. 2. Underlying COPD. ACT 112: Negative or not required by law. Electronically signed by: Emeka Washington M.D. 08/29/2021 5:28 PM
[2021-08-29] MEDS ORDERED: ACETAMINOPHEN 325 MG TAB PO PRN (17:43)
[2021-08-29] MEDS ORDERED: hydrALAZINE HCL 20 MG/ML VIAL IV PRN (17:43)
[2021-08-29] MEDS ORDERED: ENOXAPARIN INJ 40 MG/0.4 ML SYR SQ SCH (19:00)
[2021-08-29] MEDS ORDERED: methIMAzole 5 MG TABLET PO SCH (19:00)
[2021-08-29] MEDS ORDERED: FELODIPINE 2.5 MG TABCR PO SCH (21:00)
[2021-08-29] MEDS: ATENOLOL 50 MG TABLET PO SCH (21:18)
[2021-08-30 06:57] LABS: Basophils # (auto) 0.03 K/uL (0-0.2); Basophils % (auto) 0.4 %; Eosinophils # (auto) 0.27 K/uL (0-0.5); Eosinophils % (auto) 3.4 %; Hematocrit (blood only) 41.1 % (37-47); Hemoglobin 13.9 g/dL (12.0-16.0); Lymphocytes % (auto) 28.9 %; Mean Corpuscular Hemoglobin 30.1 pg (25-34); Mean Corpuscular Hgb Conc 33.8 g/dL (32-36); Mean Platelet Volume 10.7 fL (7.4-10.4); Monocytes % (auto) 8.8 %; Neutrophils # (auto) 4.65 K/uL (1.4-6.5); Neutrophils % (auto) 58.5 %; Platelet Count 276 K/uL (130-400); RDW Coefficient of Variation 13.3 % (11.5-14.5); RDW Standard Deviation 42.9 fL (36.4-46.3); Red Blood Count 4.62 M/uL (4.2-5.4); White Blood Count 7.95 K/uL (4.8-10.8)
[2021-08-30] MEDS: ATENOLOL 50 MG TABLET PO SCH ×2 (07:39→08:32)
[2021-08-30 07:48] LABS: BUN Creatinine Ratio 14.1 (10-20); Calcium 8.9 mg/dl (8.5-10.1); Creatinine Clr Calc Pharmacy 61.5 ml/min; Est GFR (African American) 98.4 ml/min; Est GFR (Non-African American) 84.9 ml/min; Magnesium 1.7 mg/dl (1.7-2.4); Potassium 4.2 mmol/L (3.5-5.1)
[2021-08-30] MEDS ORDERED: LOSARTAN POTASSIUM 50 MG TAB PO SCH (09:00)
[2021-08-30] MEDS ORDERED: ASPIRIN 81 MG ECTAB PO SCH (09:00)
--- NOTE | 2021-08-30 10:35 | Electrocardiogram Report ---
Test Reason : Blood Pressure : / mmHG Vent. Rate : 051 BPM Atrial Rate : 051 BPM P-R Int : 216 ms QRS Dur : 130 ms QT Int : 510 ms P-R-T Axes : 074 075 057 degrees QTc Int : 470 ms Sinus bradycardia with 1st degree A-V block Right bundle branch block Abnormal ECG When compared with ECG of 29-AUG-2021 13:42, No significant change was found Confirmed by oJhn Shaikh ([id number]) on 08/30/2021 10:35:08 AM Referred By: REFERRED SELF Confirmed By:John Shaikh
[2021-08-30] MEDS ORDERED: ATENOLOL 50 MG TABLET PO SCH (16:00)
--- NOTE | 2021-08-30 16:04 | Discharge Summary ---
Date of Service August 30, 2021 Admission HPI Per Admitting Provider 80 YOF with medical history of: current smoker, HTN (uncontrolled), Grave's disease, Thyroidectomy-remained hyperthyroid (on methimazole), HLD (not on medication-patient choice), osteopenia. Patient comes to the EMD today brought in by her for, headache behind her eyes and temporal, blurry vision, and confusion with alteration in short term memory. Patient states that symptoms started this morning around 1000 AM, she was up doing things around the house and forgot to take her blood pressure medications, after she took them she got onset of headache and shaking. Her came home around 1200 and noted that she was more confused and stated that she just did not feel well. He said she was forgetting where she put stuff at and forgetting where they were going. She started to feel better when getting to the EMD. In the EMD she had stroke workup with CTA of the head and neck completed as well as CT scan of the head. She was hypertensive with 225/82. She had nitropaste placed and did not require IV intervention. She states that her symptoms are resolved except for shakiness. The headache was behind her eyes rated 6-7/10 and pain in her temples. When this was resolving she did have some "fuzzy" vision but denies any unilateral or monoccular visual changes, or visual field cuts. No slurred speach or difficulty swallowing and no difficulty walking or moving. She had routine labs done that were noted to have NA of 130 and CL of 91, TSH was 5.8 and free T4 of 0.51, UA was negative except for spec grav of 1.039. She received a liter of 0.9% saline in the EMD. Her blood pressure on assessment is 169/66. Overall the patient has had poor control of her blood pressure and she notes that it is always high and she reports that she has been > 230 before. She has had her medications adjusted in July with the addition of Feldopine. She has no neurological deficits on exam. She is back to her normal mentation and also feels that she is normal. Will admit to medical telemetry to follow overnight, PRN IV BP medications for severe HTN. ECHO in morning in the setting of long standing HTN. COVID test on admission is: NEGATIVE Principal Diagnosis 1. Hypertensive emergency-resolved 2. Bradycardia 3. 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 NAD. LUNGS: Clear to auscultation bilaterally. No W/R/R. CARDIOVASCULAR: Reg S1 S2 bradycardic ABDOMEN: Soft, non-tender and non-distended. BS normoactive x 4 quad. EXTREMITIES: No edema. Non-tender. Peripheral pulses +2/4. NEUROLOGIC: A&O x3. No focal neurological deficits. CN II-XII grossly intact. PSYCHIATRIC: Cooperative. Appropriate mood and affect. SKIN: Warm, dry, intact. No rashes or lesions. Discharge Data Allergies Allergy/AdvReac Type Severity Reaction Status Date / Time adhesive tape Allergy Intermediate SKIN Verified 08/29/21 15:35 IRRITATION clindamycin Allergy Intermediate SICK ALL Verified 08/29/21 15:35 OVER chlorthalidone AdvReac Intermediate DEPLETED Verified 08/29/21 15:35 SALT amlodipine AdvReac Unknown Unknown Verified 08/29/21 15:35 Consultations 08/29/21 15:33 ED Decision to Admit Stat Ordered Studies Head CT 08/29/21 13:[address] OF THE BRAIN; CT ANGIOGRAM OF THE BRAIN; CT ANGIOGRAM OF THE NECK CLINICAL HISTORY: Strokelike symptoms. COMPARISON STUDY: No priors. TECHNIQUE: Unenhanced axial CT scan of the brain is performed. Subsequently, following the IV administration of 118 of Optiray 320, CT angiogram of the head and neck was performed from the aortic arch to the vertex. Images are reviewed in the axial, sagittal, and coronal planes. 3-D MIPS images are created and assessed. IV contrast was administered without complication. All measurements were calculated based on NASCET criteria. A dose lowering technique was utilized adhering to the principles of ALARA. CT DOSE: 1177.79 mGy.cm FINDINGS: Brain parenchyma: There is age-related involutional change noting minimal microangiopathic disease. There is no hemorrhage, mass effect, or evidence of acute territorial ischemia by CT criteria. There is no evidence of enhancing mass lesion on the angiogram phase images. The ventricles, sulci, and cisterns are prominent secondary to involutional change. Omer-white matter differentiation is preserved. No extra-axial fluid collection is seen. Thoracic aorta: There is atherosclerotic calcification of the thoracic aorta. Visualized portions of the thoracic aorta are normal in caliber. The aortic arch demonstrates standard 3-vessel anatomy. Right carotid arterial system: The right common carotid artery is widely patent. Atherosclerotic plaque causes less than 50% narrowing of the proximal right internal carotid artery. The right internal and external carotid arteries are otherwise widely patent. Left carotid arterial system: The left common carotid artery is widely patent, as are the left internal and external carotid arteries. Calcified plaque is seen the carotid bulb. Vertebral arteries: The vertebral arteries are widely patent bilaterally noting mild left-sided dominance patchy Subclavian arteries: Patent bilaterally. Intracranial vasculature: There is atherosclerotic calcification of the cavernous carotid and vertebral arteries. The internal carotid arteries are patent at the skull base, as are the anterior and middle cerebral arteries bilaterally. The vertebrobasilar system and posterior cerebral arteries are widely patent. There is mild dominance of the left vertebral artery. There is no aneurysm, high-grade stenosis, or focal vessel cut off seen throughout the intracranial circulation. Jugular veins: Patent bilaterally. Dural sinuses: Patent. Lung apices: Emphysematous change is noted. Upper lobe lung parenchyma is otherwise clear as imaged. Soft tissues: The visualized pharyngeal soft tissues are normal in appearance noting angiographic phase technique. The oropharyngeal airway appears widely patent. The right lobe of the thyroid gland is surgically absent. The left lobe is enlarged and heterogeneous. The salivary glands are normal in appearance. No cervical lymphadenopathy is seen. Skeletal structures: The skeletal structures are osteopenic. The calvarium appears intact. The cervical spine is maintained noting multilevel spondylosis. No lytic or blastic lesion is seen. Orbits: The bony orbits are intact. Orbital contents are normal as visualized noting bilateral ocular lens implants. Sinuses and mastoids: The paranasal sinuses are clear. The mastoid air cells are well pneumatized. IMPRESSION: 1 There is no hemorrhage, mass effect, or evidence of acute territorial ischemia by CT criteria. 2. Unremarkable CT angiogram of the brain. 3. Unremarkable CT angiogram of the neck. 4. Emphysema. ACT 112: Negative or not required by law. Electronically signed by: Douglas Richardson M.D. 08/29/2021 2:36 PM Head CTA 08/29/21 13:[address] OF THE BRAIN; CT ANGIOGRAM OF THE BRAIN; CT ANGIOGRAM OF THE NECK CLINICAL HISTORY: Strokelike symptoms. COMPARISON STUDY: No priors. TECHNIQUE: Unenhanced axial CT scan of the brain is performed. Subsequently, following the IV administration of 118 of Optiray 320, CT angiogram of the head and neck was performed from the aortic arch to the vertex. Images are reviewed in the axial, sagittal, and coronal planes. 3-D MIPS images are created and assessed. IV contrast was administered without complication. All measurements were calculated based on NASCET criteria. A dose lowering technique was utilized adhering to the principles of ALARA. CT DOSE: 1177.79 mGy.cm FINDINGS: Brain parenchyma: There is age-related involutional change noting minimal microangiopathic disease. There is no hemorrhage, mass effect, or evidence of acute territorial ischemia by CT criteria. There is no evidence of enhancing mass lesion on the angiogram phase images. The ventricles, sulci, and cisterns are prominent secondary to involutional change. Omer-white matter differen tiation is preserved. No extra-axial fluid collection is seen. Thoracic aorta: There is atherosclerotic calcification of the thoracic aorta. Visualized portions of the thoracic aorta are normal in caliber. The aortic arch demonstrates standard 3-vessel anatomy. Right carotid arterial system: The right common carotid artery is widely patent. Atherosclerotic plaque causes less than 50% narrowing of the proximal right internal carotid artery. The right internal and external carotid arteries are otherwise widely patent. Left carotid arterial system: The left common carotid artery is widely patent, as are the left internal and external carotid arteries. Calcified plaque is seen the carotid bulb. Vertebral arteries: The vertebral arteries are widely patent bilaterally noting mild left-sided dominance patchy Subclavian arteries: Patent bilaterally. Intracranial vasculature: There is atherosclerotic calcification of the cavernous carotid and vertebral arteries. The internal carotid arteries are patent at the skull base, as are the anterior and middle cerebral arteries bilaterally. The vertebrobasilar system and posterior cerebral arteries are widely patent. There is mild dominance of the left vertebral artery. There is no aneurysm, high-grade stenosis, or focal vessel cut off seen throughout the intracranial circulation. Jugular veins: Patent bilaterally. Dural sinuses: Patent. Lung apices: Emphysematous change is noted. Upper lobe lung parenchyma is otherwise clear as imaged. Soft tissues: The visualized pharyngeal soft tissues are normal in appearance noting angiographic phase technique. The oropharyngeal airway appears widely patent. The right lobe of the thyroid gland is surgically absent. The left lobe is enlarged and heterogeneous. The salivary glands are normal in appearance. No cervical lymphadenopathy is seen. Skeletal structures: The skeletal structures are osteopenic. The calvarium appears intact. The cervical spine is maintained noting multilevel spondylosis. No lytic or blastic lesion is seen. Orbits: The bony orbits are intact. Orbital contents are normal as visualized noting bilateral ocular lens implants. Sinuses and mastoids: The paranasal sinuses are clear. The mastoid air cells are well pneumatized. IMPRESSION: 1 There is no hemorrhage, mass effect, or evidence of acute territorial ischemia by CT criteria. 2. Unremarkable CT angiogram of the brain. 3. Unremarkable CT angiogram of the neck. 4. Emphysema. ACT 112: Negative or not required by law. Electronically signed by: Douglas Richardson M.D. 08/29/2021 2:36 PM Neck CTA 08/29/21 13:[address] OF THE BRAIN; CT ANGIOGRAM OF THE BRAIN; CT ANGIOGRAM OF THE NECK CLINICAL HISTORY: Strokelike symptoms. COMPARISON STUDY: No priors. TECHNIQUE: Unenhanced axial CT scan of the brain is performed. Subsequently, following the IV administration of 118 of Optiray 320, CT angiogram of the head and neck was performed from the aortic arch to the vertex. Images are reviewed in the axial, sagittal, and coronal planes. 3-D MIPS images are created and assessed. IV contrast was administered without complication. All measurements were calculated based on NASCET criteria. A dose lowering technique was utilized adhering to the principles of ALARA. CT DOSE: 1177.79 mGy.cm FINDINGS: Brain parenchyma: There is age-related involutional change noting minimal microangiopathic disease. There is no hemorrhage, mass effect, or evidence of acute territorial ischemia by CT criteria. There is no evidence of enhancing mass lesion on the angiogram phase images. The ventricles, sulci, and cisterns are prominent secondary to involutional change. Omer-white matter differentiation is preserved. No extra-axial fluid collection is seen. Thoracic aorta: There is atherosclerotic calcification of the thoracic aorta. Visualized portions of the thoracic aorta are normal in caliber. The aortic arch demonstrates standard 3-vessel anatomy. Right carotid arterial system: The right common carotid artery is widely patent. Atherosclerotic plaque causes less than 50% narrowing of the proximal right internal carotid artery. The right internal and external carotid arteries are otherwise widely patent. Left carotid arterial system: The left common carotid artery is widely patent, as are the left internal and external carotid arteries. Calcified plaque is seen the carotid bulb. Vertebral arteries: The vertebral arteries are widely patent bilaterally noting mild left-sided dominance patchy Subclavian arteries: Patent bilaterally. Intracranial vasculature: There is atherosclerotic calcification of the cavernou s carotid and vertebral arteries. The internal carotid arteries are patent at the skull base, as are the anterior and middle cerebral arteries bilaterally. The vertebrobasilar system and posterior cerebral arteries are widely patent. There is mild dominance of the left vertebral artery. There is no aneurysm, high-grade stenosis, or focal vessel cut off seen throughout the intracranial circulation. Jugular veins: Patent bilaterally. Dural sinuses: Patent. Lung apices: Emphysematous change is noted. Upper lobe lung parenchyma is otherwise clear as imaged. Soft tissues: The visualized pharyngeal soft tissues are normal in appearance noting angiographic phase technique. The oropharyngeal airway appears widely patent. The right lobe of the thyroid gland is surgically absent. The left lobe is enlarged and heterogeneous. The salivary glands are normal in appearance. No cervical lymphadenopathy is seen. Skeletal structures: The skeletal structures are osteopenic. The calvarium appears intact. The cervical spine is maintained noting multilevel spondylosis. No lytic or blastic lesion is seen. Orbits: The bony orbits are intact. Orbital contents are normal as visualized noting bilateral ocular lens implants. Sinuses and mastoids: The paranasal sinuses are clear. The mastoid air cells are well pneumatized. IMPRESSION: 1 There is no hemorrhage, mass effect, or evidence of acute territorial ischemia by CT criteria. 2. Unremarkable CT angiogram of the brain. 3. Unremarkable CT angiogram of the neck. 4. Emphysema. ACT 112: Negative or not required by law. Electronically signed by: Douglas Richardson M.D. 08/29/2021 2:36 PM Chest X-Ray 08/29/21 16:33 XR chest 1V portable CLINICAL HISTORY: Difficulty breathing. evaluate lung stratton and CV structures. COMPARISON STUDY: 01/04/2019 TECHNIQUE: 1 view of the chest FINDINGS: Single frontal view of the chest demonstrates the cardiomediastinal silhouette to be within normal limits. There is hyperinflation of the lungs with attenuation of the pulmonary vasculature peripherally characteristic of underlying chronic obstructive pulmonary disease. The lungs are clear of alveolar opacities. There is no evidence for pleural effusion. There is no evidence for vascular congestion. There is no acute osseous pathology. IMPRESSION: 1. No acute cardiopulmonary disease. 2. Underlying COPD. ACT 112: Negative or not required by law. Electronically signed by: Emeka Washington M.D. 08/29/2021 5:28 PM 08/30/21 06:40 08/30/21 06:40 Hospital Course (1) Hypertensive emergency: Hypertensive emergency with SBP >220 with end organ brain dysfunction- headache, vision changes, confusion - Resolved symptoms with BP lowering - BP on assessment 169/66- over 2 hours * Likely result of her home medications becoming effective as she took them just before 11 * discontinued nitro-paste ordered by ED doc * PRN Hydralazine ordered for severe BP elevation - No remaining neurological deficits and no memory deficits- CTA of head and neck without disease * MRI not ordered as symptoms were felt to be related to her HTN episode * Did offer this to patient as she did mention feeling "off balance"-she adamantly refused due to claustrophobia - May have anxiety component - ECHO performed this morning - RBBB noted back to 2019 * stress ECHO 2018 with LV function and elevated RVSP * Echo with normal LVEF 65-70%, HR in the 40s - Her prescribed Felodipine 2.5mg po daily was resumed but patient refused this (stating she doesn't take it, although it is prescribed and filled but pt's states she just doesn't take it) - Continued on Losartan 50mg PO daily- have room to adjust - Her Atenolol 50mg PO BID was ordered but held this morning due to HR in the 40s (asymptomatic) * Withholding the atenolol, her HR remains 50-60s at highest, will ultimately discontinue the Atenolol due to her bradycardia * Furthermore, her BP is much improved down to 150 systolic even with holding the Atenolol - Admitting team added ASA 81 mg daily - as she declines statin therapy secondary to friend's who have had side effects * Strongly encouraged that she be compliant with this to reduce her cad/cvd risk (2) Hyponatremia: Mild at 130 - With hypochloridemia and elevated Spec gravity - EMD felt likely hypovolemic and ordered fluids- despite fluids, pt's Na is the same today at 130 - Serum Osmol >280 and Urine Osmo >100 mOsm/kg, urine Na >40 mmol/L (70) - CXR for evaluation of lung stratton with her smoking history--COPD noted, but no obvious lesions/masses, pt has refused low dose CT according to her primary care notes - Urine/serum osmol suggestive of SIADH v RSW, will fluid restrict to 7 cups per day and repeat BMP as outpatient in 3 days, results to PCP - May need salt tabs, but will hold off on this for now (3) Smoker: Current smoker 5-8 cigarrets per day - has not had any PFTs no recent CXR - CXR as above - SPO2 tolerate 88-92% (4) Osteopenia: - On cholecalciferol/Vitamin D (5) Dyslipidemia: - Declines statin (6) Graves disease: History of thyroidectomy and remained hyperthhyroid following - she is on low dose methimazole 2.5mg daily for awhile - she feels that she remains jittery and jumpy at home ?anxiety - TSH up at 5.8 and FT4 0.5, would stop Methimazole at this point, given relatively low dose and repeat TFTs in 6 weeks BP dramatically improved today, neuro symptoms have resolved. Pt refused MRI, this can be considered as an outpatient if her symptoms of feeling off balance persist. Recommend daily baby aspirin and strongly advised smoking cessation. Fluid restriction and f/u labs for her hyponatremia as outlined above. Stop Atenolol due to her bradycardia. Continue Losartan and Felodipine, can increase one or the other if still having uncontrolled hypertension. Monitor BP with cuff at home. Follow up with Dr. Vaz (pcp) by 09/03 at the latest to review bloodwork and recheck BP. Explained plan to patient's as she gets forgetful and forgot my visit and discussion with her this morning. He admits that her forgetfulness is not new. Plan discussed with Dr. Del Castillo who has also seen this patient prior to discharge. Total Time Total Time Spent Total Time Spent (In Minutes): <30 minutes Discharge Plan Discharge Items Patient Disposition: Home - Self-Care Reason For Visit: CONFUSION, WEAKNESS IN BOTH LEG, BALANCE OFF Discharge Diagnosis: Elevated blood pressure causing headache, vision changes, and dizziness Low heart rate Low sodium Condition on Discharge: Fair Activity: Resume your previous activity Non-emergency contact: Primary Care Provider Call non-emergency contact if: you have any medication questions and your symptoms worsen Follow-up/Referrals: Douglas Vaz MD [Primary Care Provider] - Diet: Regular Fluids: 1500ml (6 cups) Ambulatory Orders: Basic Metabolic Panel (Routine) Timeframe: 3 Days Location: Determined by Patient Ordered By: Capri Grant Attending Provider Instructions: You were hospitalized due to elevated blood pressure which was felt to be the primary cause of the symptoms that brought you to the hospital. In order to bring your blood pressure down, you were given a medication called Labetalol in your IV. Your home medications were resumed as you are prescribed at home. Unfortunately, you did not get the Felodipine that you are prescribed on 08/29/21 due to refusal. However, it is extremely important that you take this medication. When severely uncontrolled, your blood pressure could cause a stroke. So, being compliant with your medications is absolutely essential. In addition to your blood pressure being uncontrolled, your heart rate was running low (in the 40s) this morning. Therefore, your Atenolol (which can affect your blood pressure AND your heart rate), is being STOPPED. We did discuss the option of having an MRI of your brain due to your symptoms of dizziness and feeling "off-balance" which you opted not to have done due to claustrophobia. I encouraged you to discuss further with your family doctor if you continue to have these symptoms and you reconsider having this done. In the meantime, it is recommended that you start taking a daily baby Aspirin 81mg. Your sodium level was found to be low during this hospitalization at 130. Normal level is 135. It is suggested based off of your laboratory studies that you may have what is called "SIADH" or Syndrome of Inappropriate Anti-Diuretic Hormone. This hormone helps the kidneys control the amount of water your body loses through the urine. In the case of SIADH, your body retains too much water. In order to help control this issue, you will need to limit the amount of fluid you take in. Ideally, you should keep your total fluid intake to no more than 7 cups every day (per 24 hour period). You will have repeat blood work to recheck your sodium level in 3 days and results will be sent to your family doctor. Lastly, your thyroid function tests performed in the hospital suggest that you are now HYPOthyroid, meaning your thyroid gland is now under active (as opposed to HYPERthyroid which means your thyroid is over active). You have been taking a small dose of Methimazole. This medication should now be STOPPED. Your primary care doctor can order follow up thyroid function tests in 4-6 weeks to reassess your numbers. Please contact your family doctor in order to schedule a follow up appointment with him no later than Wednesday09/03/21. If you have any questions/concerns after you are discharged, please contact the nonemergency number listed on your discharge paperwork. In the event of a medical emergency, call 911. Pending Studies at Discharge: No Stand-Alone Forms: [facility], Smoking Cessation Medications and DC Order Prescriptions: New aspirin 81 mg Tablet,Delayed Release (Dr/Ec) 81 mg PO QAM Qty: 30 RF: 0 Continued calcium carbonate-vitamin D3 500 mg(1,250mg) -400 unit tablet 1 tab PO BID RF: 0 propylene glycol 0.6 % drops 1 drops OP DAILY RF: 0 cholecalciferol (vitamin D3) 2,000 unit capsule 2,000 units PO DAILY Qty: 30 RF: 0 losartan 50 mg tablet 50 mg PO DAILY Qty: 90 RF: 3 felodipine 2.5 mg tablet extended release 24 hr 2.5 mg PO QPM RF: 0 Discontinued atenolol 50 mg tablet 50 mg PO BID Qty: 180 RF: 3 methimazole 5 mg tablet 2.5 mg PO QDD RF: 0 Discharge Orders: Discharge Order (Routine); Ordered 08/30/21 Ordered By: Capri Maldonado Admission Data Admit Date/Time: 08/29/21 16:09 Attending Provider: Steve Del Castillo Admit Provider: Jarod Fernando Primary Care Provider: Douglas Vaz Other Providers: Jarod Fernando Coding Level of Care Code 84178 OBS Care - Discharge Diagnoses Hypertensive emergency I16.1 Hyponatremia E87.1 Smoker F17.200 Osteopenia M85.80 Dyslipidemia E78.5 Graves disease E05.00
== END 2021-08-30 16:59 | disposition home or self-care (01) ==
LOC: ED 13:05 → EDINP 13:05 → SUATTDRO 16:09 → 2N 19:11